=== PATIENT | female | born 1980 | race Caucasian/White ===

== ENCOUNTER 2017-03-15 16:03 | Emergency (ER) | payer OTHER ==
[~2017-03-15 16:03] MED LIST: ALPRAZOLAM PO; AMOXICILLIN500 M1 PO; CORTISPORI3.5 GM OPT AS; DILANTIN PO; IBUPROFEN800 MG PO; KEFLEX500 MG PO; KEPPRA500 MG PO; LORTAB 7.5-5001 TAB PO; VICODIN 5/1 TAB 5/50 PO; [UNRECOGNIZED DRUG - OTHER]
[2017-03-15] MEDS ORDERED: AMOXICILLIN (16:27)
== END 2017-03-15 17:27 | disposition home or self-care (01) ==
LOC: SED 16:03
DX: L03.114 Cellulitis of left upper limb (principal); F43.10 Post-traumatic stress disorder, unspecified; F31.9 Bipolar disorder, unspecified; Z90.89 Acquired absence of other organs; F17.200 Nicotine dependence, unspecified, uncomplicated
CPT/HCPCS: 99283

== ENCOUNTER 2017-04-05 00:30 | Emergency (ER) | payer OTHER ==
[~2017-04-05] VITALS: Ht 177.8 cm; Wt 79.4 kg
--- NOTE | ~2017-04-05 | CR141 ---
[facility]. [facility] A Service of [facility] & [facility] RADIOLOGY TEXT RESULTS PATIENT: EBONY JORDAN LOCATION: SED : [birth year] UNIT #: [id number] AGE: [address]: Dwight Covington DO SEX: F ORDER DR: [id number] [address] [address] [id number] MR#: [id number] Acc #: [id number] NAME: EBONY JORDAN : 1980 SEX: F STUDY DATE/TIME: 04/05/2017 1:24 UNIT: SED ROOM: STUDY DESCRIPTION: CR Hand Min 3 Views Lt Attending Physician: Dwight Covington Ordering Physician: Dwight Covington MEDICAL IMAGING REPORT This report is preliminary unless electronic signature is present. EXAM Left hand 04/05/2017 HISTORY 36-year-old male in the ED with hand pain and swelling after injury. Shut hand in a metal door tonight. TECHNIQUE Three-view left hand series. FINDINGS The examination is negative. No fracture, dislocation or other acute osseous abnormality is identified. IMPRESSION Negative left hand series. Dictated by... Mickey Hidalgo M.D. THIS IS AN ELECTRONICALLY VERIFIED REPORT Mickey Hidalgo M.D. at 04/05/2017 5:26 AM DANIELLA/dorothy TD: 04/05/2017 03:49 JOB #: [id number] MEDICAL IMAGING REPORT Page 1 of 1
[~2017-04-05 00:30] MED LIST changes: +AMOXICILLIN
== END 2017-04-05 02:06 | disposition home or self-care (01) ==
LOC: SED 00:30
DX: S60.222A Contusion of left hand, initial encounter (principal); F17.200 Nicotine dependence, unspecified, uncomplicated; W22.8XXA Striking against or struck by other objects, initial encounter
CPT/HCPCS: 29280; 73130; 99283